=== PATIENT | female | born 1990 | race Caucasian/White ===

== ENCOUNTER 2019-04-27 10:00 | Day surgery (SDC) | payer MEDICAID, OTHER ==
[~2019-04-27] VITALS: Ht 162.6 cm; Wt 64.8 kg
[~2019-04-27 10:00] MED LIST: NO MEDICATIONS TAKEN
[2019-04-27 10:57] VITALS: Ht 162.6 cm; Wt 64.8 kg
[2019-04-27 11:00] VITALS: BP 156/98; PULSE 57; RESP 18
[2019-04-27] MEDS ORDERED: LIDOCAINE 4% SOLUTION 50 ML BTL ONE (11:05)
[2019-04-27] MEDS ORDERED: FENTAnyl 50 MCG/ML VIAL ONE (11:39)
[2019-04-27] MEDS ORDERED: MIDAZOLAM 1 MG/ML 2 ML INJ ONE ×2 (11:39)
[2019-04-27 12:06] VITALS: BP 123/78; RESP 20
== END 2019-04-27 15:59 | disposition home or self-care (01) ==
LOC: GIL 10:00
PROVIDERS: ATTEND Internal Medicine Gastroenterology
DX: K21.9 Gastro-esophageal reflux disease without esophagitis (principal); K29.50 Unspecified chronic gastritis without bleeding
CPT/HCPCS: 43239; 84703; J2250; J3010; Z7610; 88305; 88313